=== PATIENT | female | born 1935 | race Two or more races ===

== ENCOUNTER 2020-01-20 09:36 | Outpatient (CLI) | payer OTHER ==
[~2020-01-20 09:36] MED LIST: ARICEPT5 MG PO; HYDROCHLOROTHIAZIDE; INDUR; LASIX20 MG PO; NORVASC10 MG PO; PLAVIX75 MG PO; TENORMIN100 MG PO
== END 2020-01-20 09:48 | disposition home or self-care (01) ==
LOC: NUCLEAR 09:36
PROVIDERS: ATTEND Internal Medicine Cardiovascular Disease
DX: I11.9 Hypertensive heart disease without heart failure (principal); E11.9 Type 2 diabetes mellitus without complications; R55 Syncope and collapse

== ENCOUNTER 2020-01-22 10:23 | Outpatient (CLI) | payer OTHER | END 2020-01-22 10:27 | disposition home or self-care (01) | LOC: RAD 10:23 | PROVIDERS: ATTEND Internal Medicine Cardiovascular Disease | DX: I11.9 Hypertensive heart disease without heart failure (principal); E11.9 Type 2 diabetes mellitus without complications ==

== ENCOUNTER 2020-05-11 10:06 | Outpatient (CLI) | payer OTHER | END 2020-05-11 10:18 | disposition home or self-care (01) | LOC: NUCLEAR 10:06 | DX: I65.23 Occlusion and stenosis of bilateral carotid arteries (principal); R55 Syncope and collapse ==